=== PATIENT | female | born 1985 | race Caucasian/White ===

== ENCOUNTER 2017-09-14 03:50 | Inpatient (IN) | payer OTHER ==
[2017-09-24] MEDS: SODIUM CHLORIDE 0.9% FLUSH 10 ML SOL IV SCH ×2 (04:10→14:04)
[2017-09-24 04:54] LABS: BASOPHILS % (AUTO) 0 % (0-3); EOSINOPHILS % (AUTO) 1 % (0-9); HEMATOCRIT 38 % (35-47); MEAN CORPUSCULAR HGB CONC 34.8 gm/dl (32.0-36.0); MEAN CORPUSCULAR VOLUME 83 fL (81-99); MONOCYTES % (AUTO) 8.4 % (0-12); NEUTROPHILS % (AUTO) 70.7 % (37-80)
[2017-09-24] MEDS ORDERED: METHYLERGONOVINE MALEATE 0.2 MG/ML SOL IM PRN (04:59)
[2017-09-24] MEDS ORDERED: SODIUM CHLORIDE 0.9% FLUSH 10 ML SOL IV PRN (04:59)
[2017-09-24] MEDS ORDERED: MEPIVACAINE HCL 1% MPF 30 ML SOL INFIL PRN (04:59)
[2017-09-24] MEDS ORDERED: OXYTOCIN 10000 MU/ML SOL IM PRN (04:59)
[2017-09-24] MEDS ORDERED: FENTANYL 100MCG/2ML SOL IV PRN (04:59)
[2017-09-24] MEDS ORDERED: CARBOPROST 250 MCG/ML SOL IM PRN (04:59)
[2017-09-24] MEDS ORDERED: LACTATED RINGERS 1,000 ML IV PRN (04:59)
[2017-09-24] MEDS ORDERED: DIPHENHYDRAMINE 50 MG/ML SOL IV PRN (05:46)
[2017-09-24] MEDS ORDERED: NALOXONE HYDROCHLORIDE 0.4 MG/ML SOL IV PRN (05:46)
[2017-09-24] MEDS ORDERED: NALBUPHINE HCL 20 MG/ML SOL IV PRN (05:46)
[2017-09-24] MEDS ORDERED: EPHEDRINE SULFATE 50 MG/ML SOL IV PRN (05:46)
[2017-09-24] MEDS: LACTATED RINGERS 1,000 ML IV SCH ×3 (06:01→14:04)
[2017-09-24] MEDS ORDERED: LIDOCAINE HCL 2% MPF SOL ONE (06:16)
[2017-09-24] MEDS ORDERED: FENTANYL 250 MCG/ 5ML SOL ONE (06:49)
[2017-09-24] MEDS ORDERED: ROPIVACAINE HYDROCHLORIDE 5 MG/ML SOL ONE (06:49)
[2017-09-24] MEDS ORDERED: BENZOCAINE/MENTHOL 1 SPR TOP PRN (09:26)
[2017-09-24] MEDS ORDERED: FLEET ENEMA PR PRN (09:26)
[2017-09-24] MEDS ORDERED: WITCH HAZEL 1 EA PAD TOP PRN (09:26)
[2017-09-24] MEDS ORDERED: APAP/HYDROCODONE 325/5 TAB PO PRN (09:26)
[2017-09-24] MEDS ORDERED: BISACODYL 10 MG SUP PR PRN (09:26)
[2017-09-24] MEDS ORDERED: TEMAZEPAM 15MG 15 MG CAP PO PRN (09:26)
[2017-09-24] MEDS ORDERED: METHYLERGONOVINE MALEATE 0.2 MG TAB PO PRN (09:26)
[2017-09-24] MEDS: IBUPROFEN 600 MG TAB PO PRN ×2 (10:49→16:52)
[2017-09-24] MEDS: DOCUSATE SODIUM 100 MG SGL PO PRN (20:47)
[2017-09-24] MEDS ORDERED: DOCUSATE SODIUM 100 MG SGL PO SCH (21:00)
[2017-09-25] MEDS: IBUPROFEN 600 MG TAB PO PRN ×3 (04:00→18:49)
[2017-09-25] MEDS: FOLIC ACID 1 MG TAB PO SCH (10:13)
[2017-09-25] MEDS: DOCUSATE SODIUM 100 MG SGL PO PRN ×2 (10:13→20:47)
[2017-09-25] MEDS: MULTIVITAMIN2 1 EA TAB PO SCH (10:13)
[2017-09-25 20:51] VITALS: O2SAT 97
[2017-09-26] MEDS: DOCUSATE SODIUM 100 MG SGL PO PRN (08:23)
[2017-09-26] MEDS: MULTIVITAMIN2 1 EA TAB PO SCH (08:23)
[2017-09-26] MEDS: FOLIC ACID 1 MG TAB PO SCH (08:23)
[2017-09-26 09:15] VITALS: BP 110/73; PULSE 90; RESP 12; TEMP 97.7
== END 2017-09-26 10:10 | disposition home or self-care (01) | DRG 560 ==
LOC: OB 03:50 → UNDOADMOB 03:50 → OB 09-24 03:50 → INTOOBSV 09-24 03:50 → OBSVTOIN 09-24 03:50 → UNDOADMOB 09-24 03:50 → UNDODISIN 09-26 10:10
PROVIDERS: ADMIT Family Medicine; ATTEND Family Medicine
PROC: 10E0XZZ Delivery of Products of Conception, External Approach (ICD-10-PCS; principal; 2017-09-24)
DX: O80 Encounter for full-term uncomplicated delivery (principal); Z37.0 Single live birth; Z3A.37 37 weeks gestation of pregnancy
CPT/HCPCS: 36415; 59025; 84112; 85018; 85025; J0670; J2590; J2795; J3010; A9270-GY